=== PATIENT | female | born 1975 | race Caucasian/White ===

== ENCOUNTER 2017-05-05 14:15 | Emergency (ER) | payer OTHER ==
[~2017-05-05] VITALS: Ht 165.1 cm; Wt 79.5 kg
[2017-05-05 14:18] VITALS: BP 121/72; PULSE 108; RESP 16; TEMP 97.8; O2SAT 97
[2017-05-05 14:32] LABS: BILIRUBIN, URINE NEG (NEG); BLOOD, URINE NEG (NEG); GLUCOSE,URINE NEG (NEG); KETONE, URINE TRACE mg/dL (NEG); NITRITE,URINE NEG (NEG); PH, URINE 5.5 (5.0-8.5); URINE COLOR YELLOW (YELLW/STRAW); URINE LEUKOCYTE ESTERASE MOD (NEG)
[2017-05-05 14:37] LABS: BACTERIA, URINE FEW /hpf; MUCUS URINE FEW /lpf (OCC); RBC, URINE 0-3 /hpf (0-3); SQUAMOUS EPITHELIAL CELL URINE > 8 /hpf (0-5)
[2017-05-05] MEDS ORDERED: LEXA20TA PO (15:25)
[2017-05-05] MEDS ORDERED: LORA-474 PO (15:25)
[2017-05-05] MEDS ORDERED: SOMA350T PO (15:25)
[2017-05-05] MEDS ORDERED: [UNRECOGNIZED DRUG - OTHER] PO (15:25)
--- NOTE | 2017-05-05 16:52 | PD ---
HPI Chief Complaint: [employer] Problem/Complaint Time Seen by Provider: 16:39 Travel History International Travel<30 days: No Contact w/Intl Traveler<30days: No Traveled to known affect area: No History of Present Illness HPI The patient was seen and examined in the presence of the nurse. This patient complains of pelvic pain. Duration is 2 days. Severity is moderate. Location is left lower quadrant. She has had some scant spotting 2 days ago but none today. She took 5 tests at home. 3 were positive and 2 were negative. She does not know if she is . No vaginal discharge or fever. She had nausea but no diarrhea. Symptoms have no alleviating factors. No exacerbating factors. She has history of uterine fibroid diagnosed on the [facility] but never followed up to get it managed definitively. 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) Tetanus Vaccination: < 5 Years Influenza Vaccination: Yes ?: Unknown LMP: 03/11/17 : 7 Para: 4 Miscarriage: 3 Dilation and Curettage (D&C): Yes Past Surgical History Appendectomy: Yes Cholecystectomy: Yes Gynecologic Surgery: Yes ([facility]) Social History Alcohol Use: No Tobacco Use: No Substance Use: No Allergies-Medications (Allergen,Severity, Reaction): Coded Allergies: azithromycin (Verified Allergy, Severe, Hives, 05/05/17) erythromycin base (Verified Allergy, Severe, Hives, 05/05/17) moxifloxacin (Verified Allergy, Severe, Swelling, 05/05/17) trazodone (Verified Allergy, Severe, Shortness of Breath, 05/05/17) Reported Meds & Prescriptions Reported Meds & Active Scripts Active Macrobid (Nitrofurantoin Monoh/Nitrofur Macro) 100 Mg Cap 100 Mg PO BID Zofran (Ondansetron HCl) 4 Mg Tab 4 Mg PO Q6HR PRN Reported [Etampza Er] 18 Mg PO BID Soma (Carisoprodol) 350 Mg Tab 350 Mg PO TID PRN Ativan (Lorazepam) 1 Mg Tab 1 Mg PO Q6H PRN Lexapro (Escitalopram Oxalate) 20 Mg Tab 20 Mg PO DAILY Review of Systems General / Constitutional: No: Fever Eyes: No: Visual changes HENT: No: Headaches Cardiovascular: No: Chest Pain or Discomfort Respiratory: No: Shortness of Breath Gastrointestinal: Positive: Nausea, Abdominal Pain Genitourinary: Positive: Pelvic Pain, Vaginal Bleeding, No: Dysuria Musculoskeletal: No: Pain Skin: No Rash Neurologic: No: Weakness Psychiatric: No: Depression Endocrine: No: Polydipsia Hematologic/Lymphatic: No: Easy Bruising Physical Exam Narrative GENERAL: Well-nourished, well-developed patient with left lower quadrant cramping. SKIN: Focused skin assessment reveals no rash and nodules. Skin is Warm and dry. HEAD: Atraumatic. Normocephalic. EYES: Pupils equal and round. No scleral icterus. No injection or drainage. ENT: No nasal bleeding or discharge. Mucous membranes pink and moist. NECK: Trachea midline. No JVD. CARDIOVASCULAR: Regular rate and rhythm. No murmur appreciated. RESPIRATORY: No accessory muscle use. Clear to auscultation. Breath sounds equal bilaterally. GASTROINTESTINAL: Abdomen soft, left lower quadrant is tender without rebound or guarding , nondistended. Hepatic and splenic margins not palpable. MUSCULOSKELETAL: No obvious deformities. No clubbing. No cyanosis. No edema. NEUROLOGICAL: Awake and alert. No obvious cranial nerve deficits. Motor grossly within normal limits. Normal speech. PSYCHIATRIC: Appropriate mood and affect; insight and judgment normal. Data Data Last Documented VS Vital Signs Date Time Temp Pulse Resp B/P (MAP) Pulse Ox O2 Delivery O2 Flow Rate FiO2 05/05/17 17:57 73 16 94/64 (74) 97 Room Air 05/05/17 14:18 97.8 Orders Orders Urinalysis - C+S If Indicated (05/05/17 14:21) Ed Urine Pregnancytest Poc (05/05/17 14:21) Urine Culture (05/05/17 14:22) Complete Blood Count With Diff (05/05/17 16:48) Beta Hcg (Quant/Titer) (05/05/17 16:48) Labs Laboratory Tests Test 05/05/17 14:22 05/05/17 17:00 Urine Color YELLOW Urine Turbidity SLIGHT Urine pH 5.5 Urine Specific [place] GREATER/EQUAL 1.030 Urine Protein TRACE mg/dL Urine Glucose (UA) NEG mg/dL Urine Ketones TRACE mg/dL Urine Occult Blood NEG Urine Nitrite NEG Urine Bilirubin NEG Urine Urobilinogen 0.2 MG/DL Urine Leukocyte Esterase MOD Urine RBC 0-3 /hpf Urine WBC 25-49 /hpf Urine Squamous Epithelial Cells > 8 /hpf Urine Bacteria FEW /hpf Urine Mucus FEW /lpf Microscopic Urinalysis Comment CULTURE INDICATED White Blood Count 5.8 TH/MM3 Red Blood Count 4.27 MIL/MM3 Hemoglobin 12.1 GM/DL Hematocrit 36.8 % Mean Corpuscular Volume 86.1 FL Mean Corpuscular Hemoglobin 28.3 PG Mean Corpuscular Hemoglobin Concent 32.8 % Red Cell Distribution Width 15.1 % Platelet Count 316 TH/MM3 Mean Platelet Volume 8.6 FL Neutrophils (%) (Auto) 49.5 % Lymphocytes (%) (Auto) 39.1 % Monocytes (%) (Auto) 8.3 % Eosinophils (%) (Auto) 2.6 % Basophils (%) (Auto) 0.5 % Neutrophils # (Auto) 2.8 TH/MM3 Lymphocytes # (Auto) 2.3 TH/MM3 Monocytes # (Auto) 0.5 TH/MM3 Eosinophils # (Auto) 0.2 TH/MM3 Basophils # (Auto) 0.0 TH/MM3 CBC Comment DIFF FINAL Differential Comment Human Chorionic Gonadotropin, Quant LESS THAN 1 MIU/ML MDM Medical Decision Making Medical Screen Exam Complete: Yes Emergency Medical Condition: Yes Medical Record Reviewed: Yes Differential Diagnosis Ectopic , uterine fibroid, ovarian cyst Narrative Course I have reviewed the patient's electronic medical record. IV placed CBC is normal Beta hCG is negative Urinalysis shows some pyuria but also epithelial contaminants. It will be cultured. She says she has chronic UTIs we discussed treating versus awaiting culture results. She wants to get some antibiotics. She wants Zofran with It Diagnosis Primary Impression: Pelvic pain in female Additional Impression: Cystitis Additional Instructions: The patient was advised to follow up with their physician and return if they worsen. Med/Other Pt SpecificInfo: Prescription(s) given Scripts Nitrofurantoin Monohydrate Macrocrystals (Macrobid) 100 Mg Cap 100 MG PO BID for Infection, #10 CAP 0 Refills Prov: Jhonny Montalvo MD 05/05/17 Ondansetron (Zofran) 4 Mg Tab 4 MG PO Q6HR Y for NAUSEA OR VOMITING, #10 TAB 0 Refills Prov: Jhonny Montalvo MD 05/05/17 Disposition: 01 DISCHARGE HOME Condition: Stable Jhonny Montalvo MD May 05, 2017 16:52
[2017-05-05 17:15] LABS: AUTOMATED NEUTROPHIL # 2.8 TH/MM3 (1.8-7.7); BASOPHIL % 0.5 % (0.0-2.0); EOSINOPHIL # 0.2 TH/MM3 (0-0.4); EOSINOPHIL % 2.6 % (0.0-4.0); HEMATOCRIT 36.8 % (35.0-46.0); HEMOGLOBIN 12.1 GM/DL (11.6-15.3); LYMPH % 39.1 % (9.0-44.0); LYMPHOCYTE # 2.3 TH/MM3 (1.0-4.8); MEAN CELL VOLUME 86.1 FL (80.0-100.0); MEAN CORPUSCULAR HEMOGLOBIN 28.3 PG (27.0-34.0); MEAN CORPUSCULAR HGB CONC 32.8 % (32.0-36.0); MEAN PLATELET VOLUME 8.6 FL (7.0-11.0); MONO % 8.3 % (0.0-8.0); MONOCYTE # 0.5 TH/MM3 (0-0.9); NEUT % 49.5 % (16.0-70.0); PLATELET COUNT 316 TH/MM3 (150-450); RED BLOOD COUNT 4.27 MIL/MM3 (4.00-5.30); RED CELL DISTRIBUTION WIDTH 15.1 % (11.6-17.2); WHITE BLOOD COUNT 5.8 TH/MM3 (4.0-11.0)
[2017-05-05 17:57] VITALS: BP 94/64; PULSE 73; RESP 16; O2SAT 97
[2017-05-05] MEDS ORDERED: ZOFR4TAB PO (18:18)
[2017-05-05] MEDS ORDERED: MACR100C2 PO (18:18)
== END 2017-05-05 18:29 | disposition home or self-care (01) ==
LOC: PHED 14:15
DX: R10.2 Pelvic and perineal pain (principal); N30.90 Cystitis, unspecified without hematuria; R11.0 Nausea; F41.9 Anxiety disorder, unspecified; F32.9 Major depressive disorder, single episode, unspecified; Z79.899 Other long term (current) drug therapy; Z88.1 Allergy status to other antibiotic agents; Z88.8 Allergy status to other drugs, medicaments and biological substances
CPT/HCPCS: 81001; 84702; 84703; 85025; 87086; 99283